=== PATIENT | female | born 1990 | race Caucasian/White ===

== ENCOUNTER 2018-08-25 00:53 | Emergency (ER) | payer OTHER ==
[2018-08-25] MEDS ORDERED: KETOROLAC TROMETHAMINE INJ/PF 30 MG/1 ML SDV IV ONE (02:29)
[2018-08-25] MEDS ORDERED: NORMAL SALINE 1000 ML 1,000 ML IV ONE (02:29)
[2018-08-25] MEDS ORDERED: ONDANSETRON HCL INJ/PF 4 MG/2 ML SDV IV ONE (02:29)
--- NOTE | 2018-08-25 02:31 | ER Document Report ---
ED Medical Screen (RME) - General Chief Complaint: Abdominal Pain Stated Complaint: VOMITING Time Seen by Provider: 08/25/18 02:28 Primary Care Provider: JUDE JUAREZ MD [Primary Care Provider] - Follow up as needed Mode of Arrival: Ambulatory Information source: Patient Notes: 27-year-old female presented to ED for upper abdominal pain with nausea vomiting and diarrhea for 2 days. She states she has a history of gallstones in the past but not recently. She has not been evaluated recently. She states she has vomited at least 6 times today and had 4-5 diarrhea stools today. She denies any fevers. She states the pain is the same this week she had gallstones in the past. Patient is alert and oriented respirations regular and unlabored speaking in full sentences and walks with even steady gait. I have greeted and performed a rapid initial assessment of this patient. A comprehensive ED assessment and evaluation of the patient, analysis of test re sults and completion of medical decision making process will be conducted by an additional ED providers. Dictation of this chart was performed using voice recognition software; therefore, there may be some unintended grammatical errors. TRAVEL OUTSIDE OF THE [place] IN LAST 30 DAYS: No - Related Data Allergies/Adverse Reactions: No Known Allergies Allergy (Unverified 01/28/12 09:58) Past Medical History Neurological Medical History: Denies: Hx Seizures Renal/ Medical History: Reports: Hx Ovarian Cysts - right side. Denies: Hx Pelvic Inflammatory Disease Malignancy Medical History: Denies: Hx Breast Cancer, Hx Cervical Cancer, Hx Ovarian Cancer GI Medical History: Reports: Hx Gastroesophageal Reflux Disease, Hx Ulcer. Denies: Hx Hiatal Hernia Psychiatric Medical History: Reports: Hx Depression - PPD Past Surgical History: Denies: Hx Hysterectomy, Hx Pacemaker Physical Exam - Vital signs Vitals: Temp Pulse Resp BP Pulse Ox 98.2 F 83 22 H 126/82 H 100 08/25/18 01:03 08/25/18 01:03 08/25/18 01:03 08/25/18 01:03 08/25/18 01:03 Course - Vital Signs Vital signs: Temp Pulse Resp BP Pulse Ox 98.2 F 83 22 H 126/82 H 100 08/25/18 01:03 08/25/18 01:03 08/25/18 01:03 08/25/18 01:03 08/25/18 01:03 Doctor's Discharge - Discharge Referrals: JUDE JUAREZ MD [Primary Care Provider] - Follow up as needed
[2018-08-25 02:59] LABS: ABSOLUTE EOSINOPHILS # (AUTO) 0.1 10^3/uL (0.0-0.6); ABSOLUTE LYMPHOCYTES (AUTO) 1.5 10^3/uL (0.5-4.7); ABSOLUTE MONOCYTES (AUTO) 0.5 10^3/uL (0.1-1.4); ABSOLUTE NEUT (AUTO) 10.2 10^3/uL (1.7-8.2); BASOPHILS % (AUTO) 0.3 % (0-2); HEMATOCRIT 42.5 % (36.0-47.0); HEMOGLOBIN 14.2 g/dL (12.0-15.5); LYMPHOCYTES % (AUTO) 12.1 % (13-45); MEAN CORPUSCULAR HEMOGLOBIN 28.5 pg (27.0-33.4); MEAN CORPUSCULAR HGB CONC 33.5 g/dL (32.0-36.0); MEAN CORPUSCULAR VOLUME 85 fl (80-97); MONOCYTES % (AUTO) 3.8 % (3-13); PLATELET COUNT 340 10^3/uL (150-450); RED BLOOD COUNT 4.99 10^6/uL (3.72-5.28); RED CELL DISTRIBUTION WIDTH 13.2 % (11.5-14.0); SEGMENTED NEUTROPHILS % (AUTO) 82.8 % (42-78); TOTAL CELLS COUNTED % (AUTO) 100 %; WHITE BLOOD COUNT 12.3 10^3/uL (4.0-10.5)
[2018-08-25 03:28] LABS: ALANINE AMINOTRANSFERASE 28 U/L (9-52); ALBUMIN 4.7 g/dL (3.5-5.0); ALKALINE PHOSPHATASE 74 U/L (38-126); ANION GAP 12 (5-19); ASPARTATE AMINO TRANSFERASE 35 U/L (14-36); BILIRUBIN,DIRECT 0.2 mg/dL (0.0-0.4); BILIRUBIN,TOTAL 0.5 mg/dL (0.2-1.3); BLOOD UREA NITROGEN 14 mg/dL (7-20); CALCIUM 9.9 mg/dL (8.4-10.2); CARBON DIOXIDE 23 mmol/L (22-30); CHLORIDE 106 mmol/L (98-107); GLUCOSE 141 mg/dL (75-110); LIPASE 39.7 U/L (23-300); POTASSIUM 3.8 mmol/L (3.6-5.0); SODIUM 140.8 mmol/L (137-145); TOTAL PROTEIN 8.1 g/dL (6.3-8.2)
--- NOTE | 2018-08-25 03:46 | RADIOLOGY REPORT (SQ) ---
EXAM DESCRIPTION: US ABDOMEN LIMITED COMPLETED DATE/TME: 08/25/2018 02:29 CLINICAL HISTORY: 27 years Female, upper abdominal pain NVD Comparison: None. LIMITATIONS: None. FINDINGS: Gallbladder, negative sonographic Orlando's test, mild hepatic steatosis, a 0.2-cm diameter common bile duct, no intrahepatic ductal dilation, hepatopetal patent flow of the portal vein, 12-cm right kidney, pancreas, visualized vasculature/abdominal aorta, and no significant ascites appear otherwise unremarkable. IMPRESSION: No acute findings. Hepatic steatosis.
[2018-08-25 05:00] LABS: APPEARANCE,URINE CLEAR; BILIRUBIN,URINE NEGATIVE (NEGATIVE); COLOR,URINE YELLOW; GLUCOSE, URINE NEGATIVE (NEGATIVE); KETONES,URINE TRACE mg/dL (NEGATIVE); LEUKOCYTE ESTERASE,URINE NEGATIVE (NEGATIVE); NITRITE,URINE NEGATIVE (NEGATIVE); PROTEIN,URINE NEGATIVE (NEGATIVE); URINE SPECIFIC GRAVITY 1.016; UROBILINOGEN,URINE NEGATIVE mg/dL (<2.0)
--- NOTE | 2018-08-25 09:25 | ER Document Report ---
ED GI/ - General Chief Complaint: Abdominal Pain Stated Complaint: VOMITING Time Seen by Provider: 08/25/18 02:28 Primary Care Provider: [facility] [Provider Group] - Follow up as needed Mode of Arrival: Ambulatory Notes: Patient is a 27-year-old female who presents to the emergency department with epigastric and right upper abdominal pain. Patient states that 2 days ago after eating she developed epigastric pain that started to radiate into the right upper quadrant of her abdomen. Patient states she has had a combination of nausea, vomiting and diarrhea. Patient reports that over the past 2 days she has vomited 6-7 times and has had 4-5 episodes of diarrhea. Patient states that that the pain is worse after eating or drinking. Patient states she has had a recent change in her diet and is trying to eat more healthy. Patient denies fever. Patient reports a history of gallstones at the age of 17 and reported having the same symptoms. Patient does have a history of acid reflux when eating certain foods but does not take medication for this. TRAVEL OUTSIDE OF THE [place] IN LAST 30 DAYS: No - Related Data Allergies/Adverse Reactions: No Known Allergies Allergy (Verified 08/25/18 09:40) Past Medical History - General Information source: Patient - Social History Smoking Status: Never Smoker Frequency of alcohol use: None Drug Abuse: None Lives with: Family Family History: Reviewed & Not Pertinent Patient has suicidal ideation: No Patient has homicidal ideation: No - Past Medical History Cardiac Medical History: Reports: None Pulmonary Medical History: Reports: None EENT Medical History: Reports: None Neurological Medical History: Reports: None. Denies: Hx Seizures Endocrine Medical History: Reports: None Renal/ Medical History: Reports: Hx Ovarian Cysts - right side. Denies: Hx Peritoneal Dialysis, Hx Pelvic Inflammatory Disease Malignancy Medical History: Denies: Hx Breast Cancer, Hx Cervical Cancer, Hx Ovarian Cancer GI Medical History: Reports: Hx Gastroesophageal Reflux Disease, Hx Ulcer. Denies: Hx Hiatal Hernia Musculoskeletal Medical History: Reports None Skin Medical History: Reports None Psychiatric Medical History: Reports: Hx Depression - PPD Traumatic Medical History: Reports: None Infectious Medical History: Reports: None Past Surgical History: Reports: Hx Section - x4. Denies: Hx Hysterectomy, Hx Pacemaker Review of Systems - Review of Systems Constitutional: No symptoms reported EENT: No symptoms reported Cardiovascular: No symptoms reported Respiratory: No symptoms reported Gastrointestinal: See HPI Genitourinary: No symptoms reported Female Genitourinary: No symptoms reported Musculoskeletal: No symptoms reported Skin: No symptoms reported Hematologic/Lymphatic: No symptoms reported Neurological/Psychological: No symptoms reported Physical Exam - Vital signs Vitals: Temp Pulse Resp BP Pulse Ox 98.2 F 83 22 H 126/82 H 100 08/25/18 01:03 08/25/18 01:03 08/25/18 01:03 08/25/18 01:03 08/25/18 01:03 Interpretation: Normal - Notes Notes: GENERAL: Well-appearing, non-toxic appearing, well-nourished and in no acute distress. HEAD: Atraumatic, normocephalic. EYES: Pupils equal round and reactive to light, extraocular movements intact, sclera anicteric, conjunctiva are normal. ENT: Nares patent, oropharynx clear without exudates. Moist mucous membranes. NECK: Normal range of motion, supple without lymphadenopathy or JVD. LUNGS: Breath sounds clear to auscultation bilaterally and equal. No wheezes rales or rhonchi. HEART: Regular rate and rhythm without murmurs, rubs or gallops. ABDOMEN: Round, soft, generalized abdominal tenderness throughout - worse in the epigastric and RUQ region, normoactive bowel sounds. No guarding, no rebound. No rigidity, No masses appreciated. BACK: No cervical, thoracic, lumbar midline tenderness. No saddle anesthesia, normal distal neurovascular exam. GENITOURINARY: Deferred. EXTREMITIES: Normal range of motion, no pitting or edema. No clubbing or cyanosis. NEUROLOGICAL: Cranial nerves II through XII grossly intact. Normal speech, normal gait. PSYCH: Normal mood, normal affect. SKIN: Warm, Dry, normal turgor, no rashes or lesions noted. Course - Re-evaluation Re-evalutation: 08/25/18 09:50 Upon re-evaluation patient sitting upright on stretcher, did tolerate PO challenge without vomiting, patient states that she feels comfortable going home. Will place patient on Pepcid due to epigastric pain, reported reflux without the use of medication, and Zofran for nausea at home. Educated patient to start a clear liquid diet today - and advance as tolerated. Informed patient to return if pain worsens, changes in location, development of fever, unable to tolerate fluids or any worsening signs or symptoms. Patient verbalized understanding. - Vital Signs Vital signs: Temp Pulse Resp BP Pulse Ox 98.0 F 58 L 16 120/70 99 08/25/18 10:00 08/25/18 10:00 08/25/18 10:00 08/25/18 10:00 08/25/18 10:00 - Laboratory Result Diagrams: 08/25/18 02:40 08/25/18 02:40 Laboratory results interpreted by me: 08/25/18 08/25/18 08/25/18 02:40 02:40 04:46 WBC 12.3 H Seg Neutrophils % 82.8 H Lymphocytes % 12.1 L Absolute Neutrophils 10.2 H Glucose 141 H Urine Ketones TRACE H - Diagnostic Test Radiology reviewed: Reports reviewed Radiology results interpreted by me: 08/25/18 10:06 Patient's ultrasound had no acute findings. It was noted she had hepatic steatosis. Discharge - Discharge Clinical Impression: Diarrhea Abdominal pain Qualifiers: Abdominal location: right upper quadrant Qualified Code(s): R10.11 - Right upper quadrant pain Nausea & vomiting Qualifiers: Vomiting type: unspecified Vomiting Intractability: non-intractable Qualified Code(s): R11.2 - Nausea with vomiting, unspecified Condition: Stable Disposition: HOME, SELF-CARE Instructions: Abdominal Pain ([facility]), Antinausea Medication ([facility]), Intravenous (IV) Fluids ([facility]), Low-Fat Diet ([facility]) Additional Instructions: Today you were seen in the emergency department for upper abdominal pain. Your ultrasound of your upper abdomen was negative for any acute abnormality. Your lab work and urine were unremarkable. After IV fluids and nausea medication you report improvement in your symptoms. It is unsure what is causing your discomfort. I am placing you on pepcid for the acid reflux and prescribing zofran for nausea. Start with a clear liquid diet over the next 24 hours and advance to normal diet as tolerated. Please return for any worsening symptoms to include severe abdominal pain, pain in the location of your abdominal pain, vomiting blood, blood or dark stools, fever, or any other new or concerning signs or symptoms. Acid-Suppressing Medication You have a prescription for medicine which reduces the stomach's secretion of acid. Examples include Zantac, Tagament, and Pepcid. These drugs are often used to allow healing of ulcers or esophagitis. They may be needed to prevent recurrence of ulcers in some patients, or to prevent damage from acid reflux in the esophagus. Take all medication as prescribed, even after the pain is gone. Regular antacids may be added as needed if you have symptoms while taking this medicine. These medications sometimes are prescribed for allergic reactions because they have anti-histaminic effects and relieve the rash and itching of the reaction. There are usually no side effects from this medication. But, in rare cases and particularly in the elderly, serious problems can occur. Contact your doctor if there is fever, rash, hallucinations, confusion, or unusual bruising. Contact your doctor at once if you develop lightheadedness, black or bloody stool, or bloody vomitus. Abdominal Pain There are many causes of abdominal pain. Pain can mean a serious problem requiring surgery (such as appendicitis). It can also be an innocent problem that goes away on its own (such as a viral infection). Often, time must pass to determine the cause of pain. The physician does not feel that hospitalization is necessary, at present. Things may change within the next 24 hours. Call the doctor or come back for re- examination if any problems occur, such as: (1) Pain that becomes more severe, steady, or becomes concentrated in one s pecific area. Also, pain that is more severe with movement or coughing. (2) Vomiting that persists or becomes more frequent. (3) Blood in the vomitus, urine, or bowel movements. Blood in the stool may have a tarry or black appearance. (4) Shaking chills or fever greater than 100 degrees F. (5) The abdomen becomes more distended or swollen. (6) Bowel movements cease. (7) Failure to improve as expected. Prescriptions: Famotidine [Pepcid 20 mg Tablet] 20 mg PO BID 30 Days #60 tablet Ondansetron [Zofran Odt 4 mg Tablet] 1 tab PO Q4H PRN #15 tab.rapdis PRN Reason: For Nausea/Vomiting Referrals: [facility] [Provider Group] - Follow up as needed
[2018-08-25 10:12] VITALS: BP 120/70
== END 2018-08-25 10:13 | disposition home or self-care (01) ==
LOC: ER 00:53
DX: R10.11 Right upper quadrant pain (principal); R10.13 Epigastric pain; R11.2 Nausea with vomiting, unspecified; R19.7 Diarrhea, unspecified; R10.817 Generalized abdominal tenderness; K76.0 Fatty (change of) liver, not elsewhere classified
CPT/HCPCS: 99284; 96361; 96374; 96375; 36415; 83690; 84703; 85025; 80053; 81001; 76705; J1885; J2405; J7030